=== PATIENT | female | born 1990 | race African-American/Black ===

== ENCOUNTER 2021-03-01 13:48 | Outpatient (CLI) | payer OTHER, SELFPAY ==
--- NOTE | ~2021-03-01 | US_ITS ---
EXAMINATION: US thyroid DATE: 03/01/2021 14:10 INDICATION: Nontoxic goiter. TECHNIQUE: Multiple ultrasound images of the thyroid were obtained. COMPARISON: None. FINDINGS: The right thyroid lobe measures 4.8 x 1.5 x 1.5 cm. The left thyroid lobe measures 4.4 x 1.0 x 2.0 c m. There is normal echotexture and echogenicity throughout the thyroid gland. No discrete nodules id entified. Normal vascular flow is present. IMPRESSION: 1. Normal thyroid. Reviewed, dictated and finalized at location A. IMPRESSION: 1. Normal thyroid.
== END 2021-03-01 13:49 | disposition home or self-care (01) ==
PROVIDERS: Visit Provider Obstetrics & Gynecology
DX: E04.9 Nontoxic goiter, unspecified (principal)
CPT/HCPCS: 76536

== ENCOUNTER 2021-04-15 13:51 | Outpatient (CLI) | payer OTHER, SELFPAY ==
--- NOTE | ~2021-04-15 | MMUS_ITS ---
EXAMINATION: MM diagnostic jacqui RT w lady, US breast RT limited HISTORY: Palpable right breast mass TECHNIQUE: Additional 3-D tomosynthesis images of the right breast were performed and synthetic 2-D i mages were generated. CAD analysis was submitted and interpreted. High resolution Limited right breas t ultrasound was performed. COMPARISON: None BREAST PARENCHYMAL COMPOSITION: The breasts are heterogenously dense, which may obscure small masses. FINDINGS: MAMMOGRAPHIC FINDINGS: There is a cluster of masses in the lower central aspect of the right breast with suggestion of some spiculation on the spot CC view. There are no suspicious calcifications. ULTRASOUND: Limited right breast ultrasound: At 6:00, 4 cm from the nipple, there is a cluster of irregular shape d hypoechoic masses with angular margins and areas of posterior shadowing. Largest component measures 2.3 x 1.8 x 0.8 cm. No internal vascularity identified. IMPRESSION: 1. Cluster of irregular shaped hypoechoic masses at 6:00, 4 cm from the nipple corresponding to the m ammographic and clinically palpable abnormalities. Largest mass measures 2.3 x 1.8 x 0.8 cm. 2. Ultrasound-guided right breast biopsy recommended. BI-RADS category 4, suspicious findings. Reviewed, dictated and finalized at location A. IMPRESSION: 1. Cluster of irregular shaped hypoechoic masses at 6:00, 4 cm from the nipple corresponding to the mammographic and clinically palpable abnormalities. Larges t mass measures 2.3 x 1.8 x 0.8 cm. 2. Ultrasound-guided right breast biopsy recommended. BI-RADS category 4, suspicious findings.
== END 2021-04-15 13:52 | disposition home or self-care (01) ==
LOC: ANHIMG 13:53
PROVIDERS: PCP Obstetrics & Gynecology; Visit Provider Obstetrics & Gynecology
DX: N63.15 Unspecified lump in the right breast, overlapping quadrants (principal)
CPT/HCPCS: 76642; 77061; 77065; G0279

== ENCOUNTER 2022-07-20 09:42 | Outpatient (CLI) | payer OTHER, SELFPAY ==
[2022-07-20 10:52] LABS: Hepatitis B Surface Antigen Negative (Negative)
[2022-07-20 11:09] LABS: Hepatitis C Virus Antibody Negative (Negative)
[2022-07-20 11:10] LABS: HIV 1/2 Ab P24 Ag Result Negative (Negative)
[2022-07-20 12:06] LABS: Thyroid Stimulating Hormone 0.114 uIU/mL (0.465-4.680)
[2022-07-21 17:12] LABS: Rapid Plasma Reagin Non-Reactive (NonReactive)
== END 2022-07-20 09:43 | disposition home or self-care (01) ==
LOC: ANHLAB 09:44
PROVIDERS: PCP Obstetrics & Gynecology; Visit Provider Obstetrics & Gynecology
DX: E04.9 Nontoxic goiter, unspecified (principal); Z20.2 Contact with and (suspected) exposure to infections with a predominantly sexual mode of transmission
CPT/HCPCS: 36415; 84436; 84443; 86592; 86703; 86803; 87340; G0432

== ENCOUNTER 2022-08-28 15:37 | Outpatient (CLI) | payer OTHER, SELFPAY ==
--- NOTE | ~2022-08-28 | US_ITS ---
EXAMINATION: US thyroid DATE: 08/28/2022 16:09 INDICATION: Nontoxic goiter, unspecified. TECHNIQUE: Multiple ultrasound images of the thyroid were obtained. COMPARISON: Thyroid ultrasound 03/01/2021 FINDINGS: The right thyroid lobe measures 5.9 x 1.9 x 2.1 cm. The left thyroid lobe measures 5.8 x 1.6 x 2.2 c m. There is normal echotexture and echogenicity throughout the thyroid gland. No discrete nodules id entified. Normal vascular flow is present. IMPRESSION: 1. Normal thyroid. Reviewed, dictated and finalized at location A. [employer] IMPRESSION: 1. Normal thyroid.
== END 2022-08-28 15:38 | disposition home or self-care (01) ==
PROVIDERS: PCP Obstetrics & Gynecology; Visit Provider Obstetrics & Gynecology
DX: E04.9 Nontoxic goiter, unspecified (principal)
CPT/HCPCS: 76536

== ENCOUNTER 2023-01-03 14:54 | Outpatient (CLI) | payer OTHER, SELFPAY ==
[2023-01-03 16:21] LABS: Thyroid Stimulating Hormone 0.273 uIU/mL (0.465-4.680)
[2023-01-03 17:06] LABS: Free T4 Free Thyroxine 1.32 ng/mL (0.78-2.19)
[2023-01-06 13:36] LABS: Thyroid Peroxidase Antibodies 1 IU/mL (<9)
[2023-01-06 18:19] LABS: Thyrotropin Receptor Antibody <1.00 IU/L (<=2.00)
[2023-01-08 13:50] LABS: Thyroid Stimulating Immunoglob <89 % baseline (<140)
== END 2023-01-03 14:55 | disposition home or self-care (01) ==
LOC: ANHLAB 14:55
PROVIDERS: PCP Obstetrics & Gynecology; Visit Provider Internal Medicine
DX: R94.6 Abnormal results of thyroid function studies (principal); E04.9 Nontoxic goiter, unspecified
CPT/HCPCS: 36415; 83519; 84439; 84443; 84445; 86376

== ENCOUNTER 2023-07-05 13:56 | Outpatient (CLI) | payer OTHER, SELFPAY ==
[2023-07-05 15:33] LABS: HIV 1/2 Ab P24 Ag Result Negative (Negative)
[2023-07-05 15:39] LABS: Rapid Plasma Reagin Non-Reactive (NonReactive)
[2023-07-05 16:03] LABS: Hepatitis C Virus Antibody Negative (Negative)
== END 2023-07-05 13:57 | disposition home or self-care (01) ==
LOC: ANHLAB 13:57
PROVIDERS: PCP Obstetrics & Gynecology; Visit Provider Obstetrics & Gynecology
DX: Z01.419 Encounter for gynecological examination (general) (routine) without abnormal findings (principal)
CPT/HCPCS: 36415; 86592; 86695; 86696; 86703; 86803; G0432

== ENCOUNTER 2023-12-24 12:35 | Outpatient (CLI) | payer BC, OTHER, SELFPAY ==
[2023-12-24 14:08] LABS: Free T4 Free Thyroxine 1.06 ng/mL (0.78-2.19)
[2023-12-27 02:44] LABS: Thyroid Peroxidase Antibodies 1 IU/mL (<9)
== END 2023-12-24 12:36 | disposition home or self-care (01) ==
LOC: ANHLAB 12:36
PROVIDERS: PCP Obstetrics & Gynecology; Visit Provider Internal Medicine
DX: R94.6 Abnormal results of thyroid function studies (principal); E04.9 Nontoxic goiter, unspecified
CPT/HCPCS: 36415; 84439; 86376

== ENCOUNTER 2024-05-14 16:39 | Outpatient (CLI) | payer BC, OTHER, SELFPAY ==
[2024-05-14 17:43] LABS: Thyroid Stimulating Hormone 0.068 uIU/mL (0.465-4.680)
[2024-05-14 17:53] LABS: Free T4 Free Thyroxine 1.44 ng/mL (0.78-2.19)
[2024-05-15 13:13] LABS: Triiodothyronine T3 Free 2.9 pg/mL (2.3-4.2)
== END 2024-05-14 16:40 | disposition home or self-care (01) ==
LOC: ANHLAB 16:42
PROVIDERS: Visit Provider Internal Medicine
DX: E04.9 Nontoxic goiter, unspecified (principal); R94.6 Abnormal results of thyroid function studies
CPT/HCPCS: 36415; 84439; 84443; 84481

== ENCOUNTER 2024-05-22 12:47 | Outpatient (CLI) | payer BC, OTHER, SELFPAY ==
--- NOTE | ~2024-05-22 | US_ITS ---
EXAMINATION: US thyroid DATE: 05/22/2024 13:23 INDICATION: Lump in throat. Subclinical hyperthyroidism. TECHNIQUE: Multiple ultrasound images of the thyroid were obtained. COMPARISON: Ultrasound 08/28/2022, 03/01/2021 FINDINGS: The right thyroid lobe measures 4.8 x 1.3 x 1.8 cm. The left thyroid lobe measures 4.8 x 1.2 x 1.9 c m. There is normal echotexture and echogenicity throughout the thyroid gland. No discrete nodules id entified. Normal vascular flow is present. There is a 1.9 x 2.1 x 1.7 cm left internal jugular chain lymph node. IMPRESSION: 1. Enlarged left internal jugular chain lymph node, which may be reactive or metastatic disease or ly mphoma. Ultrasound-guided core needle biopsy is recommended. 2. Normal thyroid. Reviewed, dictated and finalized at location A. IMPRESSION: 1. Enlarged left internal jugular chain lymph node, which may be reactive or me tastatic disease or lymphoma. Ultrasound-guided core needle biopsy is recommend ed. 2. Normal thyroid.
== END 2024-05-22 12:48 | disposition home or self-care (01) ==
LOC: ANHIMG 12:47
PROVIDERS: Visit Provider Internal Medicine
DX: R94.6 Abnormal results of thyroid function studies (principal)
CPT/HCPCS: 76536